=== PATIENT | female | born 1970 | race Caucasian/White ===

== ENCOUNTER 2019-03-03 11:11 | Emergency (ER) | payer MEDICAID ==
[2019-03-03] MEDS ORDERED: ONDANSETRON HCL IV 4 MG/2 ML VIAL IV ONE (11:59)
[2019-03-03] MEDS ORDERED: 0.9 % SODIUM CHLORIDE 1,000 ML BAG IV ONE (11:59)
[2019-03-03] MEDS ORDERED: SUCRALFATE 1 G/10 ML UD PO ONE (12:00)
--- NOTE | 2019-03-03 12:03 | Emergency Department Record ---
History of Present Illness - General Chief complaint: Nausea, Vomiting, Diarrhea Stated complaint: VOMITING/ACHE /SHARP PAIN IN STOMACH Time Seen by Provider: 03/03/19 11:47 Source: Patient Mode of Arrival: Ambulatory Limitations: No limitations - History of Present Illness Initial comments: The patient is here due to a 12 hour hx of nausea, frequent vomiting and upper abdominal sharp pains. The pain seem to be all over the upper abdomen and when they get bad she does vomit. There has been no fever, lower AP, diarrhea, or blood in the vomit. The patient states her entire household is ill with the same thing. Her only abdominal surgery is a GÉNESIS. MD complaint: Abdominal pain, Nausea, Vomiting Onset/Timin -: Days(s) Description of Vomiting: Watery Location: Diffuse Severity: Severe Severity scale (1-10): 10 Quality: Sharp Consistency: Intermittent Improves with: None Worsens with: None Associated Symptoms: Headaches, Nausea/vomiting - Related Data Previous Rx's Medication Instructions Recorded Ondansetron [Zofran Odt] 4 mg SL .Q4-6H PRN #12 tab.rapdis 03/03/19 Allergies Allergy/AdvReac Type Severity Reaction Status Date / Time Penicillins AdvReac VOMITING Verified 03/03/19 12:05 Travel Screening - Travel/Exposure Within Last 30 Days Have you traveled within the last 30 days?: No Review of Systems Constitutional: Denies: Chills, Fever Eyes: Denies: Eye discharge ENT: Denies: Congestion Respiratory: Denies: Cough, Dyspnea Past Medical History - SOCIAL HISTORY Smoking Status: Never smoker Alcohol Use: None Drug Use: None - RESPIRATORY Hx Respiratory Disorders: No - CARDIOVASCULAR Hx Cardio Disorders: No - NEURO Hx Neuro Disorders: Yes Hx Headaches: Yes - GI Hx GI Disorders: No - Hx Genitourinary Disorders: No - ENDOCRINE Hx Endocrine Disorders: No - MUSCULOSKELETAL Hx Musculoskeletal Disorders: Yes Hx Arthritis: Yes - PSYCH Hx Psych Problems: No - HEMATOLOGY/ONCOLOGY Hx Hematology/Oncology Disorders: No Family Medical History Any Significant Family History?: No Physical Exam - General General Appearance: Alert, Oriented x3, Cooperative, No acute distress - Head Head exam: Atraumatic, Normocephalic, Normal inspection - Eye Eye exam: Normal appearance, PERRL, EOMI - ENT Throat exam: Normal inspection. negative: Tonsillar erythema, Tonsillar exudate - Neck Neck exam: Normal inspection, Full ROM. negative: Tenderness - Respiratory Respiratory exam: Normal lung sounds bilaterally. negative: Respiratory distress - Cardiovascular Cardiovascular Exam: Regular rate, Normal rhythm, Normal heart sounds - GI/Abdominal GI/Abdominal exam: Soft, Normal bowel sounds, Tenderness (There is mild upper abdominal tenderness.). negative: Rebound, Rigid - Extremities Extremities exam: Normal inspection, Full ROM, Normal capillary refill. negative: Tenderness Course Vital Signs 03/03/19 11:32 Temperature 98.5 F Pulse Rate 100 H Respiratory 20 Rate Blood Pressure 130/80 Pulse Ox 99 - Reevaluation(s) Reevaluation #1: The patient is doing a lot better at this time but is still having some pain. The nausea is gone. 03/03/19 13:06 Reevaluation #2: The patient is doing a lot better at this time. She denies any pain, nausea, or vomiting. On exam the abdomen is very soft and nontender in all 4 quads. I did discuss the normal lab work with the patient and the normal CT. The patient is to see her PCP this week for recheck and to return to the ER for any worsening symptoms. 03/03/19 14:47 Medical Decision Making - Data Complexity MDM Data: Labs Ordered and/or Reviewed, X-Ray Ordered and/or Reviewed - Lab Data Result diagrams: 03/03/19 11:40 03/03/19 11:40 - Radiology Data Radiology results: Report reviewed (Abd CT: Neg for acute changes. No source for pain.) Disposition Disposition: Discharge Clinical Impression: Vomiting Qualifiers: Vomiting type: unspecified Vomiting Intractability: non-intractable Nausea presence: with nausea Qualified Code(s): R11.2 - Nausea with vomiting, unspecified Disposition: Home, Self-Care Condition: (2) Stable Instructions: Acute Nausea and Vomiting (ED) Additional Instructions: Please do not eat or drink for 3 hours then slowly advance your diet. Please use the Zofran for nausea and see your doctor this week for recheck. Return to the ER for any return of the pain, vomiting, or any fever. Prescriptions: Ondansetron [Zofran Odt] 4 mg SL .Q4-6H PRN #12 tab.rapdis PRN Reason: Nausea Forms: Patient Portal Access Time of Disposition: 14:50 Quality - Quality Measures Quality Measures: N/A - Blood Pressure Screening View Details: Yes Does Patient Have Any of the Following: No Blood Pressure Classification: Pre-Hypertensive BP Reading Systolic Measurement: 130 Diastolic Measurement: 80 Screening for High Blood Pressure: < Pre-Hypertensive BP, F/U Documented > [[id number]] Pre-Hypertensive Follow-up Interventions: Referral to alternative/primary care provider.
[2019-03-03 12:05] LABS: ABSOLUTE NEUTROPHIL COUNT 10.71; BASO % 0.2 % (0-6); EOS % 0.5 % (0-6); HEMATOCRIT 46.8 % (35.0-47.0); HEMOGLOBIN 15.2 gm/dl (11.6-16.0); LYMPH % 4.5 % (16-45); MEAN CELL VOLUME 91.8 fl (81-97); MEAN CORPUSCULAR HEMOGLOBIN 29.8 pg (27-33); MEAN CORPUSCULAR HGB CONC 32.5 g/dl (32-36); MEAN PLATELET VOLUME 9.1 fl (7.4-10.4); MONO % 3.2 % (0-9); PLATELET COUNT 298 K/uL (130-400); RED CELL DISTRIBUTION WIDTH 13.7 % (11.5-14.5); WHITE BLOOD COUNT W/O DIFF 11.7 K/uL (4.2-12.2)
[2019-03-03 12:20] LABS: BLOOD UREA NITROGEN 24 mg/dL (6-20); CREATININE 0.6 mg/dL (0.5-0.9); EST GLOMERULAR FILTRATION RATE > 60 mL/min
[2019-03-03 12:21] LABS: LIPASE 38 U/L (13-60); TOTAL PROTEIN 8.1 g/dL (6.6-8.7)
[2019-03-03 12:22] LABS: GLUCOSE,RANDOM 117 mg/dL (74-109)
[2019-03-03 12:25] LABS: ALBUMIN 4.5 g/dL (4.0-5.0); ALKALINE PHOSPHATASE 117 U/L (35-104); ALT/SGPT 19 U/L (<33); AST/SGOT 17 U/L (10.0-35.0)
[2019-03-03 12:26] LABS: BILIRUBIN,DIRECT < 0.2 mg/dL (0-0.3)
[2019-03-03] MEDS ORDERED: DIPHENHYDRAMINE HCL 50 MG/ML VIAL IVP ONE (13:52)
[2019-03-03] MEDS ORDERED: METOCLOPRAMIDE HCL 10 MG/2 ML VIAL IVP ONE (13:52)
--- NOTE | 2019-03-03 14:41 | CT SCAN REPORT ---
EXAMINATION: CHEST/ABD/PEL WO CONTRAST EXAM DATE: 03/03/2019 1:42 PM TECHNIQUE: CT of the chest, abdomen, and pelvis was obtained without intravenous or oral contrast INDICATION of abdominal pain with nausea and vomiting: Upper AP. ENCOUNTER: Initial COMPARISON: No similar comparison exam FINDINGS: Chest: No focal consolidation. No suspicious mass. No pleural effusion or pneumothorax. No mediastinal mass. Calcified mediastinal lymph nodes are noted. No fractures identified. Abdomen and pelvis: Noncontrast imaging of the liver, spleen, pancreas, gallbladder, bilateral adrenal glands are unremar kable. A small low-attenuation region right kidney measuring approximately 1 cm likely representing cysts. N o hydronephrosis or urolithiasis. Normal appendix. The stomach, small bowel, and large bowel are otherwise unremarkable. No pneumoperitoneum or ascites. Prior hysterectomy. Prominent ovaries appear physiologic. No fracture. Lumbar levocurvature. IMPRESSION: 1. The cause of abdominal pain is not identified. No acute process demonstrated in this exam Dictated by: KARLENE HILARIO MD on 03/03/2019 2:31 PM. .
== END 2019-03-03 14:58 | disposition home or self-care (01) ==
LOC: ER 11:11
DX: R11.2 Nausea with vomiting, unspecified (principal); R19.7 Diarrhea, unspecified; R51 Headache; R10.10 Upper abdominal pain, unspecified
CPT/HCPCS: 99284 ×2; 96374; 96375; 83690; 80076; 80048; 85027; 71250; 74176; J2405; J1200; J2765; J7030